=== PATIENT | female | born 1965 | race Two or more races ===

== ENCOUNTER 2016-04-19 20:52 | Emergency (ER) | payer SELFPAY ==
[2016-04-19 21:12] VITALS: BP 148/72; PULSE 96; TEMP 98.2; BMI 25.7
--- NOTE | 2016-04-19 21:29 | EDPRACDOC ---
- General Information Stated Complaint: RT EAR PAIN/BLEEDING Time Seen by Provider: 04/19/16 21:13 Information Source: Patient Home Medications: Home Medications Insulin Novolog 70/30 MIX [NOVOLOG 70-30 Mix] 25 units SQ BID 10/13/12 Aspirin (Enteric Coated) [Halfprin] 325 mg PO DAILY 05/22/15 Fludrocortisone Acetate 0.1 mg PO QAM 05/22/15 Gabapentin [Neurontin] 600 mg PO TID 05/22/15 Metformin HCl 1,000 mg PO BID 05/22/15 Pantoprazole Sodium [Protonix] 40 mg PO DAILY 05/22/15 Prednisone [Deltasone] 60 mg PO DAILY 05/22/15 Risperidone [Risperdal] 1 mg PO DAILY(DINORAH) 05/22/15 Cyanocobalamin (Vitamin B-12) [Vitamin B-12] 1,000 mcg PO DAILY 05/23/15 Ciprofloxacin HCl [Cipro] 500 mg PO BID #20 tab 10/10/15 Duloxetine HCl 30 mg PO DAILY 10/10/15 Ondansetron HCl [Zofran] 4 mg PO Q6H PRN #15 tab 10/10/15 Oxycodone HCl [Roxicodone] 5 mg PO Q4-6H PRN #10 tablet 10/10/15 Syringe & Needle,Insulin,1 ml [Insulin Syringe] 1 each MC DAILY(DINORAH) #1 box Trazodone HCl 25 mg PO HS 10/10/15 Amoxicillin Trihydrate [Amoxicillin] 500 mg PO TID #21 tab 04/19/16 Ciprofloxacin [Cipro Hc] 3 drops BID #10 ml 04/19/16 Allergies/Adverse Reactions: Allergies Allergy/AdvReac Type Severity Reaction Status Date / Time No Known Allergies Allergy Verified 10/10/15 06:28 - History of Present Illness Onset: 2 days HPI: Pt c/o L earache, Sob x 2 days. Denies fever, sore throat, congestion, cough, abd pain, n/v, changes in bowel or bladder, rash. Location: left ear Context: Reports: Spontaneous Onset Recently Treated Ear Infection: Reports: No Pain Severity: Reports: Moderate Associated Signs & Symptoms: Reports: Discharge ED Past Medical History - History Reviewed Yes Nurses notes reviewed and agree except as marked - Patient Medical History Neurological History: Denies: Cerebrovascular Accident, Seizures, Dementia, Epilepsy, Guillian-[place] Syndrome, Parkinson's, Multiple Sclerosis, Myasthenia Gravis Cardiac History: Reports: Hypertension, Hypercholesterolemia, Syncope (When CBG High). Denies: Cardiac Catheterization, CABG GI/ History: Denies: Kidney (Renal Surgery) Musculoskeletal History: Reports: Arthritis, Osteoarthritis. Denies: Gout, Rheumatoid Arthritis Psychological History: Reports: Depression, Anxiety. Denies: Schizophrenia, Bipolar Disorder, Substance Use Disorder Systemic History: Reports: Diabetes. Denies: Cancer, Hyperthyroidism, Hypothyroidism Additional Past Medical History: PERIPHERAL NEUROPATHY Surgical History: Reports: Other (CSXN). Denies: CABG, Hysterectomy, Angioplasty, Cardiac Catheterization, Hernia Surgery - Family Medical History Reports: Diabetes, Cancer (older sister, unknown type). Denies: Hypertension, Stroke, Cardiac Disorders - Social Medical History Smoking Status: Never smoker Social History: Denies: Substance Use Disorder ETOH: None Substance Abuse: None EDM Review of Systems - Review of Systems Constitutional: No Symptoms Reported. negative: Fever, Chills, Weakness, Fatigue, Loss of Appetite Ears: Drainage, Pain Throat: No Symptoms Reported. negative: Pain, Swelling Nose: No Symptoms Reported. negative: Congestion, Bleeding, Discharge, Injection, Swelling, Deformity, Ecchymosis, Tender, Abrasion, Laceration Mouth: No Symptoms Reported. negative: Pain, Drooling Respiratory: No Symptoms Reported. negative: Cough, Brassy Cough, Barky Cough, Shortness of Breath, Wheezing, Hemoptysis Cardiovascular: No Symptoms Reported. negative: Chest Pain, Palpitations, Syncope, Edema, Orthopnea, PND, Skin Mottling, Cyanosis Gastrointestinal: No Symptoms Reported. negative: Pain, Constipation, Nausea, Vomiting, Diarrhea, Melena, Formula Intolerance Genitourinary: No Symptoms Reported. negative: Dysuria, Hematuria, Frequency, Discharge, Bleeding, Testicular Pain, Neurological: No Symptoms Reported. negative: Headache, Dizziness, Seizure, Numbness, Weakness, Speech Difficulty, Gait Difficulty Musculoskeletal: No Symptoms Reported. negative: Neck, Chestwall, Ribs, Back, Shoulder, Arm, Elbow, Forearm, Wrist, Hand, Pelvis, Hip, Femur, Knee, Leg, Ankle , Foot Integumentary: No Symptoms Reported. negative: Itching, Rash, Bruising, Wound Allergic/Immunologic: No Symptoms Reported. negative: Hives, Itching Hematologic: No Symptoms Reported. negative: Lymphadenopathy, Easy Bruising, Easy Bleeding Psychiatric: No Symptoms Reported. negative: Anxiety, Depression, Hallucinations, Insomnia, Suicidal - Physical Exam Constitutional: Alert Oriented to: Time, Person, Place Last recorded Vital Signs: Last Vital Signs Temp 98.2 F 04/19/16 21:11 Pulse 96 04/19/16 21:11 Resp 20 04/19/16 21:11 BP 148/72 04/19/16 21:11 Pulse Ox 95 04/19/16 21:11 Oxygen Pulse Oxygen Saturation 95 O2 Device Room Air Oxygen Flow Rate Fraction of Inspired Oxygen ( FIO2) - HEENT Head: Normal ( normocephalic) Eye Exam: Normal (PERRL, EOMI, Sclera white) Oropharynx: Normal (Pharynx:Moist without exudate,Gums-no swelling) Tympanic Membrane: Obscured (L) ENT EAC: Blood, Swelling, Tender TMJ: Normal Nose: No Symptoms Reported (septum midline) Neck: Normal (FROM, trachea at midline) - Respiratory/Cardiovascular Respiratory: Normal - CTA (BBS clear to auscultation without adventitious sounds ) Cardiovascular: Normal (RRR without murmur, gallop or rub) - Integumentary Skin: Normal, Warm, Dry Lymphatics: Normal (no adenopathy) - Neurologic Memory Impaired: Normal Motor Function: Normal (Normal tone, Pulses 2+ No cyanosis or edema, FROM) Mood Description: Normal Perception: Normal - Differential Diagnosis Otitis Externa, Otitis Media Decision Time to Discharge: 21:27 - Departure Disposition: Home Condition: Good Final Diagnosis: Otitis externa Qualifiers: Otitis externa type: unspecified type Laterality: left Chronicity: acute Qualified Code(s): H60.502 - Unspecified acute noninfective otitis externa, left ear Instructions: Otitis Externa (ED) Education/Counseling Given To: Patient, Family Member Education/Counseling Given Regarding: Diagnosis, Treatment, Follow Up Referrals: None,No Provider [Primary Care Provider] - One Week Ha Wetzel MD [Staff Physician] - One Week Prescriptions: Amoxicillin Trihydrate [Amoxicillin] 500 mg PO TID #21 tab Ciprofloxacin [Cipro Hc] 3 drops BID #10 ml Additional Instructions: Return for worse or different symptoms.
== END 2016-04-19 21:41 | disposition home or self-care (01) ==
LOC: EDMC 20:52
DX: H60.502 Unspecified acute noninfective otitis externa, left ear (principal)
CPT/HCPCS: 99283